=== PATIENT | female | born 1950 | race Caucasian/White ===

== ENCOUNTER → 2022-01-15 | Day surgery (SDC) | payer MEDICARE ==
[~2022-01-15] VITALS: Ht 154.9 cm; Wt 38.1 kg
[~2022-01-15] MED LIST: ALEVE220 MG PO; NORCO 5-325 TA1 EACH PO
[2022-01-15 08:06] LABS: HCT 40.2 % (37.0-47.0); HGB 13.3 g/dl (12.5-16.0); MCH 30.4 pg (25.0-31.0); MCHC 33.1 g/dL (32.0-36.0); MPV 9.9 fL (6.0-9.5); RBC 4.37 M/uL (4.20-5.40); RDW 13.5 % (11.5-14.0); WBC 4.5 K/uL (4.0-10.5)
[2022-01-15 08:40] LABS: ALBUMIN 3.7 g/dL (3.4-5.0); BILIRUBIN - TOTAL 0.4 mg/dL (0.2-1.0); BUN/CREAT RATIO (CALC) 27.8 RATIO; CREATININE 0.72 mg/dL (0.51-0.95); GLOBULIN (CALCULATION) 2.9 g/dL; POTASSIUM 3.8 mmol/L (3.5-5.1); TOTAL PROTEIN 6.6 g/dL (6.4-8.2)
== END | disposition home or self-care (01) ==
LOC: FAS 07:33
PROVIDERS: Surgery
DX: C50.912 Malignant neoplasm of unspecified site of left female breast (principal); E78.5 Hyperlipidemia, unspecified; M19.90 Unspecified osteoarthritis, unspecified site; Z88.2 Allergy status to sulfonamides
CPT/HCPCS: 36415; 80053; J2405; J2704; J3010; J7120

== ENCOUNTER → 2022-01-25 | Day surgery (SDC) | payer MEDICARE ==
[~2022-01-25] VITALS: Ht 154.9 cm; Wt 38.1 kg
== END | disposition home or self-care (01) ==
LOC: FAS 08:09
DX: C77.3 Secondary and unspecified malignant neoplasm of axilla and upper limb lymph nodes (principal); N60.01 Solitary cyst of right breast; E78.00 Pure hypercholesterolemia, unspecified; M19.90 Unspecified osteoarthritis, unspecified site; Z88.2 Allergy status to sulfonamides
CPT/HCPCS: 78195; A9541; J1100; J2250; J2405; J2704; J3010; J7120